=== PATIENT | female | born 1980 | race Caucasian/White ===

== ENCOUNTER → 2017-07-18 | Outpatient (CLI) | payer OTHER ==
[~2017-07-18] MED LIST: ACYC200C PO; FEXO180T81 PO; GADOBUTROL 7.5 MMOL/7.5 ML VIAL INT ART ONE; IOHEXOL 300 MG/ML 50 ML VIAL. INT ART ONE; LIDOCAINE 1% Multi-Dose 20 ML VIAL. ID ONE; SPIR25TA3 PO
--- NOTE | 2017-07-18 12:36 | KCIC ---
MR arthrogram of the left shoulder Indication: Left shoulder pain. Limited range of motion for 9 months. Technique: Intra-articular contrast injected into the glenohumeral joint and is reported separately. Routine 4 plane sequences were obtained, including ABER positioning. Findings: Acromioclavicular joint: Mildly degenerative. Small osteophytes with mild undersurface mass effect. Bone marrow edema and soft tissue edema at the joint. Rotator cuff: No evidence of tear. Mild tendinosis signal. Subdeltoid bursa: Trace fluid without contrast accumulation. Articular cartilage: No acute cartilage defect or advanced DJD. Labrum: Abnormal linear contrast accumulation within the superior labrum compatible with a tear. Biceps tendon: Intact Bones: No lesion or acute fracture. Soft tissue: No acute findings. Impression: 1. Superior labral tear. 2. Mild rotator cuff tendinosis. 3. Acromioclavicular joint primary osteoarthritis. Bone marrow soft tissue edema at the joint could also be degenerative, versus a superimposed repetitive stress injury. Electronically signed by: Jerardo Houser MD (07/18/2017 12:32 PM) [email or web address]
--- NOTE | 2017-07-18 12:37 | KCIC ---
PROCEDURE: Left shoulder injection using fluoroscopic guidance, prior to MR. HISTORY: Shoulder pain. Symptoms for 9 months. TECHNIQUE: The procedure was explained to the patient as were potential risks, including among others infection, bleeding or allergic reaction. All questions were answered. Informed written and verbal consent was obtained. The shoulder was prepped and draped in the usual sterile manner. Following administration of local anesthetic, a 22-gauge needle was advanced into the anterior shoulder. Following negative aspiration, 12 cc of a solution of 5cc Omnipaque-300 contrast, 5 cc 1% lidocaine, 10 cc normal saline, and 0.1 cc gadolinium was injected without difficulty. The needle was removed. There was good hemostasis at the injection site. The patient left in stable condition without immediate complication. A single spot image is obtained. FLUOROSCOPY TIME:?24 seconds Electronically signed by: Jerardo Houser MD (07/18/2017 12:33 PM) [email or web address]
== END | disposition home or self-care (01) ==
LOC: KCIC 09:52
DX: S43.432A Superior glenoid labrum lesion of left shoulder, initial encounter (principal); M19.012 Primary osteoarthritis, left shoulder; R60.9 Edema, unspecified; X58.XXXA Exposure to other specified factors, initial encounter; Y93.89 Activity, other specified; Y92.89 Other specified places as the place of occurrence of the external cause; Y99.8 Other external cause status
CPT/HCPCS: 73040; 73222; A9585; Q9967

== ENCOUNTER → 2019-03-28 | Outpatient (CLI) | payer OTHER ==
[~2019-03-28] MED LIST changes: -GADOBUTROL 7.5 MMOL/7.5 ML VIAL INT ART ONE; -IOHEXOL 300 MG/ML 50 ML VIAL. INT ART ONE; -LIDOCAINE 1% Multi-Dose 20 ML VIAL. ID ONE; -SPIR25TA3 PO; +SPIR25TA5 PO
--- NOTE | 2019-03-29 10:02 | RAD ---
DATE: 03/28/2019 EXAM: DIGITAL SCREEN BILAT W/CAD HISTORY: Routine screening COMPARISON: Baseline study This study was interpreted with the benefit of Computerized Aided Detection (CAD). Breast Density: SCATTERED The breast parenchyma shows scattered fibroglandular densities. Breast parenchyma level B. FINDINGS: No suspicious breast density or architectural distortion is seen. There is a tiny benign-appearing lymph node type density projected over the far posterolateral aspect of the right breast. No suspicious microcalcifications are evident. IMPRESSION: There is no mammographic evidence of malignancy in either breast. Considering the patient's family history of breast cancer, follow-up imaging at yearly intervals is suggested. BI-RADS CATEGORY: 1 NEGATIVE RECOMMENDED FOLLOW-UP: 12M 12 MONTH FOLLOW-UP PQRS compliance statement: Patient information was entered into a reminder system with a target due date for the next mammogram. Mammography is a sensitive method for finding small breast cancers, but it does not detect them all and is not a substitute for careful clinical examination. A negative mammogram does not negate a clinically suspicious finding and should not result in delay in biopsying a clinically suspicious abnormality. "Our facility is accredited by the [employer] Mammography Program."
== END | disposition home or self-care (01) ==
LOC: MAMMO 10:05
PROVIDERS: ATTEND Internal Medicine
DX: Z12.31 Encounter for screening mammogram for malignant neoplasm of breast (principal); Z80.3 Family history of malignant neoplasm of breast
CPT/HCPCS: 77067

== ENCOUNTER → 2020-10-12 | Outpatient (CLI) | payer OTHER ==
[~2020-10-12] MED LIST changes: -ACYC200C PO; +ACYC200C84 PO
--- NOTE | 2020-10-12 17:06 | RAD ---
Examination: 1. Bilateral digital diagnostic mammogram. 2. Limited right breast ultrasound. INDICATION: 40-year-old woman with right breast palpable tenderness in the upper outer quadrant on se lf exam. COMPARISON: 03/28/2019 TECHNIQUE: Bilateral CC and MLO views were obtained with 2-D and 3-D technique and reviewed with comp uter-aided detection. Targeted ultrasound of the upper outer right breast in the area of patient's re ported palpable tenderness was performed. FINDINGS: Heterogeneously dense breasts. No dominant mass, suspicious calcifications or architectural distortion. The area of palpable tenderness shows no definite mammographic correlate although there is generalize d increased breast tissue density compared with the previous mammogram. Targeted ultrasound of the upper outer quadrant right breast showed dense fibroglandular tissue with no suspicious sonographic findings. No evidence of axillary adenopathy on sonographic survey of the r ight axilla. IMPRESSION: Negative bilateral mammogram and targeted right breast ultrasound. BI-RADS Category 1 Negative Recommend clinical management. This means (in part) that the patient should have a biopsy if there are any suspicious findings on cl inical exam. In the absence of any clinically suspicious findings, patient should have a screening ma mmogram at age 42. Patient has been entered into a reminder system with targeted due date for next mammogram. Electronically signed by: Donta Slade MD (10/12/2020 5:04 PM) [id number]
== END ==
LOC: MAMMO 09:47
PROVIDERS: ATTEND Internal Medicine
DX: R92.2 Inconclusive mammogram (principal)
CPT/HCPCS: 76641; 77066; G0279; 77062